=== PATIENT | male | born 1995 | race African-American/Black ===

== ENCOUNTER 2016-04-29 10:33 | Emergency (ER) | payer OTHER, SELFPAY ==
[2016-04-29] MEDS ORDERED: Fentanyl 100 MCG/2 ML VIAL ONE (10:51)
[2016-04-29 11:07] LABS: #Basophils 0.2 thou/uL (0.0-0.2); #Eosinphils 0.1 thou/uL (0.0-0.7); #Lymphocytes 1.5 thou/uL (1.20-3.40); #Monocytes 0.4 thou/uL (0.11-0.59); #Neutrophils 3.1 thou/uL (1.40-6.50); %Basophils 2.9 % (0.0-1.0); %Eosinophils 2.3 % (0.0-10.0); %Lymphocytes 28.6 % (21.0-51.0); %Monocytes 7.1 % (0.0-10.0); Hematocrit 48.2 % (42.0-52.0); Mean Platelet Volume 6.7 fL (7.4-10.4); Red Blood Cell (RBC) Count 5.27 mill/uL (4.70-6.10); White Blood Cell (WBC) Count 5.3 thou/uL (4.8-10.8)
[2016-04-29 11:21] LABS: ALT (SGPT) 16 U/L (0-55); AST (SGOT) 12 U/L (5-34); Alkaline Phosphatase 65 U/L (40-150); Anion Gap 13 mmol/L (10-20); BUN (Urea Nitrogen) 7 mg/dL (8.9-20.6); Bilirubin, Total 0.9 mg/dL (0.2-1.2); Calc. Creatinine Clearance 0 mL/min (70-130); Calcium 9.3 mg/dL (7.8-10.44); Carbon Dioxide 26 mmol/L (22-29); Chloride 106 mmol/L (98-107); Estimated GFR-MDRD Greater than 90; Globulin 3.4 g/dL (2.4-3.5); Protein, Total 7.8 g/dL (6.0-8.3)
[2016-04-29] MEDS ORDERED: Lidocaine 1% 20 ML MDV ONE (11:28)
[2016-04-29] MEDS ORDERED: Bacitracin Zinc 1 Packet ONE (11:50)
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
--- NOTE | 2016-04-29 12:16 | PICIS ---
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 Range (136-145), Potassium 3.7 mmol/L, Range (3.5-5.1), Chloride 106 mmol/L, Range (98-107), Carbon Dioxide 26 mmol/L, Range (22-29), Anion Gap 13 mmol/L, Range (10-20), *BUN (Urea Nitrogen) 7 - L mg/dL, Range (8.9-20.6), Creatinine 1.04 mg/dL, Range (0.7-1.3), Estimated GFR-MDRD Greater than 90 , Reference Range for Estimated GFR: Greater than 90, mL/min/1.73 m2 NOTE: The MDRD equation has not been validated for use, with the elderly (over 70 years of age), women, patients with, serious comorbid condition or persons with extremes of body size, muscle, mass, or nutritional status. , *Glucose 109 - H mg/dL, Range (70-105), Calcium 9.3 mg/dL, Range (7.8-10.44), Bilirubin, Total 0.9 mg/dL, Range (0.2-1.2), Protein, Total 7.8 g/dL, Range (6.0-8.3), NOTE: Plasma values are generally 0.3 to 0.5 g/dL higher than serum values, due to the presence of fibrinogen. , Albumin 4.4 g/dL, Range (3.5-5.0), Globulin 3.4 g/dL, Range (2.4-3.5), Alb/Glob Ratio 1.3 g/dL, Range (1.2-2.2), Alkaline Phosphatase 65 U/L, Range (40-150), AST (SGOT) 12 U/L, Range (5-34), ALT (SGPT) 16 U/L, Range (0-55). CBC with Differential Collection DT: Sat Apr 29, 2016 10:57, White Blood Cell (WBC) Count 5.3 thou/uL, Range (4.8-10.8), Red Blood Cell (RBC) Count 5.27 mill/uL, Range (4.70-6.10), Hemoglobin 16.1 g/dL, Range (14.0-18.0), Hematocrit 48.2 %, Range (42.0-52.0), Mean Corpuscular Volume 91.6 fl, Range (80.0-94.0), &a-1R&a+25V*p+0X*w6094V*c202B*c15G*c2P*p-0X&a-25V&a+1R Name: Melecio Little : 1995 M20 MedRec: [id number] AcctNum: [id number] Prepared: Sat Apr 29, 2016 12:44 by Interface Page 10 of 11 pMD [facility] EMERGENCY RECORD Mean Corpuscular Hemoglobin 30.7 pg, Range (27.0-31.0), Mean Corpuscular HGB CONC 33.5 g/dL, Range (32.0-36.0), RBC Distribution Width 12.7 %, Range (11.5-14.5), Platelet Count 304 thou/uL, Range (130-400), *Mean Platelet Volume 6.7 - L fL, Range (7.4-10.4), %Neutrophils 59.0 %, Range (42.0-75.0), %Lymphocytes 28.6 %, Range (21.0-51.0), %Monocytes 7.1 %, Range (0.0-10.0), %Eosinophils 2.3 %, Range (0.0-10.0), *%Basophils 2.9 - H %, Range (0.0-1.0), #Neutrophils 3.1 thou/uL, Range (1.40-6.50), #Lymphocytes 1.5 thou/uL, Range (1.20-3.40), #Monocytes 0.4 thou/uL, Range (0.11-0.59), #Eosinphils 0.1 thou/uL, Range (0.0-0.7), #Basophils 0.2 thou/uL, Range (0.0-0.2). Smith: CHRISTINA=SIDDHARTHA Wilcox, Isis FRANCIS=MD Patel, Leonides CHAPARRO=JENNIFER Pittman Kim &a-1R&a+25V*p+0X*a0429H*c202B*c15G*c2P*p-0X&a-25V&a+1R Name: Melecio Little : 1995 M20 MedRec: [id number] AcctNum: [id number] Prepared: Sat Apr 29, 2016 12:44 by Interface Page 11 of 11 pMD MTDD
--- NOTE | 2016-04-29 12:51 | RAD ---
RIGHT KNEE 4 VIEWS: Date: 04/29/16 PROVIDED CLINICAL HISTORY: Right knee pain status post injury. FINDINGS: There is soft tissue deficiency overlying the patella compatible with laceration. There is no eviden ce for fracture or other acute osseous abnormality. Alignment appears anatomic. Joint spaces appear preserved. No evidence for knee joint capsular distention. Several tiny foci of increased density pr oject in the soft tissues anterior to the patella on the lateral view which could reflect small fore ign bodies. IMPRESSION: 1. No evidence for fracture. 2. Soft tissue laceration with possible associated foreign body. POS: HUMAIRA
== END 2016-04-29 12:02 | disposition home or self-care (01) ==
LOC: NAV ERS 10:33
DX: S81.011A Laceration without foreign body, right knee, initial encounter (principal); J45.909 Unspecified asthma, uncomplicated; F17.210 Nicotine dependence, cigarettes, uncomplicated; W01.0XXA Fall on same level from slipping, tripping and stumbling without subsequent striking against object, initial encounter
CPT/HCPCS: 12002; 80053; 80307; 85025; 96374; J2001; J3010

== ENCOUNTER 2016-05-07 20:36 | Emergency (ER) | payer OTHER ==
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
== END 2016-05-07 21:05 | disposition home or self-care (01) ==
LOC: NAV ERS 20:36
DX: S81.011D Laceration without foreign body, right knee, subsequent encounter (principal); J45.909 Unspecified asthma, uncomplicated; Z79.899 Other long term (current) drug therapy; X58.XXXD Exposure to other specified factors, subsequent encounter
CPT/HCPCS: 99282

== ENCOUNTER 2016-05-09 07:26 | Emergency (ER) | payer OTHER ==
--- NOTE | 2016-05-09 07:54 | ERRECORD ---
[facility] EMERGENCY RECORD HPI WOUND CHECK (07:44 JLOY) CHIEF COMPLAINT: Patient presents for evaluation of knee wound, laceration, closed with sutures, Wound is 10 days old, Patient presents for evaluation of Pt reports improvement of pain and small drainage. wound scabbed over. No fevers. Noted to have minimal purulent drainaged at the inferior aspect of the wound but mostly healthy granulation tissue. HISTORIAN: History provided by patient. LOCATION: Symptoms are localized. TIME COURSE: Symptoms are improving. ASSOCIATED WITH: No associated chills, Associated with drainage, intermittent, No associated fever, No associated proximal streaking, No associated redness. EXACERBATED BY: Patient's condition exacerbated by nothing. RELIEVED BY: Patient's condition relieved by time. ROS (07:45 JLOY) CONSTITUTIONAL: Historian denies chills, denies fever. GI: Historian denies nausea, denies vomiting. SKIN: Historian denies cellulitis, denies induration. PAST MEDICAL HISTORY MEDICAL HISTORY: Flu vaccine not up to date, Tetanus immunization up to date, Pneumococcal vaccine not up to date, Past medical history includes pulmonary disease, asthma. (07:34 JPAR) MALE SURGICAL HISTORY: Patient has no surgical history. (07:34 JPAR) PSYCHIATRIC HISTORY: No previous psychiatric history. (07:34 JPAR) SOCIAL HISTORY: Patient denies alcohol use, Patient denies drug use, Patient currently uses tobacco, smokes cigarettes, Patient smokes 1.5 packs per day. (07:34 JPAR) FAMILY HISTORY: Maternal history of hypertension, MOTHER HAS HX OF htn. (07:34 JPAR) NOTES: Nursing records reviewed, Agree with nursing records. (07:46 JLOY) KNOWN ALLERGIES No Known Drug Allergies CURRENT MEDICATIONS (SunMay 09, 2016 07:33 JPAR) None VITAL SIGNS (07:31 JPAR) VITAL SIGNS: BP: 120/61, Pulse: 89, Resp: 16, Temp: 98.8 (Oral), O2 sat: 100, Time: 05/09/2016 07:31. PHYSICAL EXAM (07:45 JLOY) CONSTITUTIONAL: Vital signs reviewed, Patient appears non toxic, Patient alert and oriented to person, place and time. RESPIRATORY CHEST: Respiratory exam included findings of no &a-1R&a+25V*p+0X*j1297Y*c202B*c15G*c2P*p-0X&a-25V&a+1R Name: Melecio Little : 1995 M20 MedRec: [id number] AcctNum: [id number] Prepared: SunMay 09, 2016 07:56 by Interface Page 1 of 2 pMD [facility] EMERGENCY RECORD respiratory distress, Chest exam included findings of chest movement symmetrical. LOWER EXTREMITY: Lower extremity exam included findings of inspection abnormal, laceration(s) present, Healing well. See HPI for details. NEURO: Joan coma scale 15, Neuro exam findings include patient oriented to person, place and time, Speech normal. PSYCHIATRIC: Normal affect. PROBLEM LIST No recorded problems DIAGNOSIS (07:43 TITO) FINAL: PRIMARY: ENCOUNTER FOR REMOVAL OF SUTURES. PRESCRIPTION (07:43 TITO) Bactrim DS: TABLET : 800 mg-160 mg : ORAL : Quantity: 1 Unit: tab(s) Route: ORAL Schedule: 2 times a day Dispense: 14 May substitute. Refills: No Refills . NOTES: No Refills. DISPOSITION PATIENT: Disposition Type: Discharge, Disposition: *Discharge Home. (07:43 TITO) Patient left the department. (07:51 CHRISTINA) Smith: CHRISTINA=SIDDHARTHA Wilcox, Isis FRANCIS=MD Patel, Leonides LAZARO=SIDDHARTHA Johnson, Tutu &a-1R&a+25V*p+0X*b2936H*c202B*c15G*c2P*p-0X&a-25V&a+1R Name: Melecio Little : 1995 M20 MedRec: [id number] AcctNum: [id number] Prepared: SunMay 09, 2016 07:56 by Interface Page 2 of 2 pMD MTDD
--- NOTE | 2016-05-09 08:02 | PICIS ---
[facility] EMERGENCY RECORD TRIAGE (SunMay 09, 2016 07:33 JPAR) TRIAGE NOTES: Suture removal, 9 days. (SunMay 09, 2016 07:33 JPAR) PATIENT: NAME: Melecio Little, AGE: 20, GENDER: male, : Sun1995, TIME OF GREET: SunMay 09, 2016 07:27, PREFERRED LANGUAGE: Lithuanian, ETHNICITY: Not or , ECODE BILLING MAP: [facility], Zip Code: [address], KG WEIGHT: 81.65, PHONE: , , , PERSON ID: [id number], PCP: Jessica Gallardo /Petar. (SunMay 09, 2016 07:33 JPAR) SSN: [id number]. (07:34) COMPLAINT: REMOVE STITCHES. (SunMay 09, 2016 07:33 JPAR) ADMISSION: URGENCY: 4 Non Urgent, ADMISSION SOURCE: Home, TRANSPORT: Ambulance- [facility], BED: TRIAGE. (SunMay 09, 2016 07:33 JPAR) ASSESSMENT: Assessment: suture removal R knee, Symptoms began 9 days, Symptoms began greater than 1 week ago. (07:34 JPAR) SIRS SCORING: Heart Rate 55-109 (0), Temp range 96.8-101.1 (0), respiratory rate 12-24 (0), Mental Status altered: no (0), Infection or Suspected Infection: No. (07:34 JPAR) TRIAGE SCREENING: Patient denies suicidal ideation, Patient denies presence of domestic violence. (07:34 JPAR) PROVIDERS: TRIAGE NURSE: Tutu Johnson RN. (SunMay 09, 2016 07:33 JPAR) VITAL SIGNS: BP 120/61, Pulse 89, Resp 16, Temp 98.8, (Oral), O2 Sat 100, Time 05/09/2016 07:31. (07:31 JPAR) PREVIOUS VISIT ALLERGIES: No Known Drug Allergies. (SunMay 09, 2016 07:33 JPAR) No Known Drug Allergies. (07:34 JPAR) KNOWN ALLERGIES No Known Drug Allergies CURRENT MEDICATIONS (SunMay 09, 2016 07:33 JPAR) None VITAL SIGNS (07:31 JPAR) VITAL SIGNS: BP: 120/61, Pulse: 89, Resp: 16, Temp: 98.8 (Oral), O2 sat: 100, Time: 05/09/2016 07:31. NURSING ASSESSMENT: SKIN (07:33 JPAR) CONSTITUTIONAL: Patient arrives ambulatory, Gait steady, History obtained from patient, Patient appears comfortable, Patient cooperative, Patient alert, Oriented to person, place and time, Skin warm, Skin dry, Skin normal in color, Mucous membranes pink, Mucous membranes moist, Patient complains of Suture removal R knee. PAIN: aching pain, on a scale 0-10 patient rates pain as 2. SKIN: Skin assessment findings include skin warm, Skin dry, Skin normal in color, Notes: scabbing R knee, sutures in place. &a-1R&a+25V*p+0X*q0550T*c202B*c15G*c2P*p-0X&a-25V&a+1R Name: Sridhar Littlewilbert Jhaveri : 1995 M20 MedRec: [id number] AcctNum: [id number] Prepared: SunMay 09, 2016 08:01 by Interface Page 1 of 4 pMD [facility] EMERGENCY RECORD SAFETY: Side rails up, Cart/Stretcher in lowest position, Call light within reach, Hospital ID band on. NURSING PROCEDURE: DISCHARGE NOTE (07:47 EPIE) DISCHARGE: Patient discharged to home, ambulating without assistance, driving self, unaccompanied, Summary of Care printed/ provided, Discharge instructions given to patient, Simple or moderate discharge teaching performed, Prescriptions given and instructions on side effects given, Name of prescription(s) given: bactrim, Above person(s) verbalized understanding of discharge instructions and follow-up care, Notes: Pt instructed to take antibiotic as listed and finish the whole prescription. BELONGINGS: Belongings and valuables with patient upon arrival to the Emergency Department include:, Belongings and valuables with patient at time of discharge include:, Belongings remain with patient, Valuables remain with patient. NURSING PROCEDURE: SUTURE/STAPLE REMOVAL (07:45 EPIE) SUTURE/STAPLE REMOVAL: Sutures removed, from right knee, signs of infection, Number of sutures removed 4, by Patel SCOTT. FOLLOW-UP: After procedure, no dressing necessary. HPI WOUND CHECK (07:44 JLOY) CHIEF COMPLAINT: Patient presents for evaluation of knee wound, laceration, closed with sutures, Wound is 10 days old, Patient presents for evaluation of Pt reports improvement of pain and small drainage. wound scabbed over. No fevers. Noted to have minimal purulent drainaged at the inferior aspect of the wound but mostly healthy granulation tissue. HISTORIAN: History provided by patient. LOCATION: Symptoms are localized. TIME COURSE: Symptoms are improving. ASSOCIATED WITH: No associated chills, Associated with drainage, intermittent, No associated fever, No associated proximal streaking, No associated redness. EXACERBATED BY: Patient's condition exacerbated by nothing. RELIEVED BY: Patient's condition relieved by time. ROS (07:45 JLOY) CONSTITUTIONAL: Historian denies chills, denies fever. GI: Historian denies nausea, denies vomiting. SKIN: Historian denies cellulitis, denies induration. PAST MEDICAL HISTORY MEDICAL HISTORY: Flu vaccine not up to date, Tetanus immunization up to date, Pneumococcal vaccine not up to date, Past medical history includes pulmonary disease, asthma. (07:34 JPAR) MALE SURGICAL HISTORY: Patient has no surgical history. (07:34 JPAR) PSYCHIATRIC HISTORY: No previous psychiatric history. &a-1R&a+25V*p+0X*z8776T*c202B*c15G*c2P*p-0X&a-25V&a+1R Name: Melecio Little : 1995 M20 MedRec: [id number] AcctNum: [id number] Prepared: Stevie May 09, 2016 08:01 by Interface Page 2 of 4 pMD [facility] EMERGENCY RECORD (07:34 JPAR) SOCIAL HISTORY: Patient denies alcohol use, Patient denies drug use, Patient currently uses tobacco, smokes cigarettes, Patient smokes 1.5 packs per day. (07:34 JPAR) FAMILY HISTORY: Maternal history of hypertension, MOTHER HAS HX OF htn. (07:34 JPAR) NOTES: Nursing records reviewed, Agree with nursing records. (07:46 JLOY) PHYSICAL EXAM (07:45 JLOY) CONSTITUTIONAL: Vital signs reviewed, Patient appears non toxic, Patient alert and oriented to person, place and time. RESPIRATORY CHEST: Respiratory exam included findings of no respiratory distress, Chest exam included findings of chest movement symmetrical. LOWER EXTREMITY: Lower extremity exam included findings of inspection abnormal, laceration(s) present, Healing well. See HPI for details. NEURO: Clarks coma scale 15, Neuro exam findings include patient oriented to person, place and time, Speech normal. PSYCHIATRIC: Normal affect. EVENTS TRANSFER: Triage to Emergency Triage. (SunMay 09, 2016 07:33 JPAR) Emergency Triage to Emergency Room -02. (07:33 JPAR) Removed from Emergency Emergency Room -02. (07:51 EPIE) SUTURE/STAPLE REMOVAL (07:46 JLOY) SUTURE/STAPLE REMOVAL: Side and/or site verified, Patient identification confirmed, Sterile procedures observed, Verbal consent obtained, Suture or staple removal indicated for scheduled removal, Suture(s) removed from laceration, to knee, Wound age 10 days, Serosanguinous drainage present, Suture(s) removed without difficulty, Number of sutures removed 4, There were no complications, Patient tolerated the procedure well, Mostly serosanguinous drainage but minimal purulence noted from inferior wound edge. Abx prescribed. PROBLEM LIST No recorded problems DIAGNOSIS (07:43 JLOY) FINAL: PRIMARY: ENCOUNTER FOR REMOVAL OF SUTURES. DISPOSITION PATIENT: Disposition Type: Discharge, Disposition: *Discharge Home. (07:43 JLOY) Patient left the department. (07:51 EPIE) &a-1R&a+25V*p+0X*e1371D*c202B*c15G*c2P*p-0X&a-25V&a+1R Name: Sridhar Littlewilbert Jhaveri : 1995 M20 MedRec: [id number] AcctNum: [id number] Prepared: SunMay 09, 2016 08:01 by Interface Page 3 of 4 pMD [facility] EMERGENCY RECORD INSTRUCTION (07:44 JLOY) DISCHARGE: SUTURE REMOVAL, INFECTED. FOLLOWUP: [facility], [facility], [address], [facility] [address], , Follow up with Primary Care Physician in 3-4 days. PRESCRIPTION (07:43 JLOY) Bactrim DS: TABLET : 800 mg-160 mg : ORAL : Quantity: 1 Unit: tab(s) Route: ORAL Schedule: 2 times a day Dispense: 14 May substitute. Refills: No Refills . NOTES: No Refills. IMAGING (07:51 CHRISTINA) *DISCHARGE INSTRUCTIONS RECEIPT: Image captured from scanner. *SUPPLY CHARGE SHEET: Image captured from scanner. ADMIN (07:47 TITO) DIGITAL SIGNATURE: MD Sweeney Joshua. Smith: CHRISTINA=SIDDHARTHA Wilcox, Isis FRANCIS=MD Sweeney Joshua JPAR=SIDDHARTHA Johnson, Tutu &a-1R&a+25V*p+0X*i3470K*c202B*c15G*c2P*p-0X&a-25V&a+1R Name: SidneyMelecio : 1995 M20 MedRec: [id number] AcctNum: [id number] Prepared: Stevie May 09, 2016 08:01 by Interface Page 4 of 4 pMD MTDD
== END 2016-05-09 07:47 | disposition home or self-care (01) ==
LOC: NAV ERS 07:26
DX: S81.011D Laceration without foreign body, right knee, subsequent encounter (principal); J45.909 Unspecified asthma, uncomplicated; F17.210 Nicotine dependence, cigarettes, uncomplicated; X58.XXXD Exposure to other specified factors, subsequent encounter
CPT/HCPCS: 99282

== ENCOUNTER 2016-06-13 16:52 | Emergency (ER) | payer OTHER ==
[2016-06-13 17:09] LABS: Bilirubin Negative (Negative); Blood, Urine Negative (Negative); Glucose, Urine (Dipstick) Negative (Negative); Ketone, Urine Trace mg/dL (Negative); Nitrite Negative (Negative); Protein, Urine (Dipstick) 30 mg/dL (Neg-Trace)
[2016-06-13 17:15] LABS: Bacteria/HPF 1+ HPF (None Seen); RBC/HPF None Seen HPF (0-3); Squamous Epithelial None Seen HPF (0-3)
[2016-06-13] MEDS ORDERED: Amoxicillin/Potassium Clav 875 MG TAB ONE (17:29)
[2016-06-13] MEDS ORDERED: Phenazopyridine HCl 97.5 MG TABLET ONE (17:29)
== END 2016-06-13 17:37 | disposition home or self-care (01) ==
LOC: NAV ERS 16:52
DX: N39.0 Urinary tract infection, site not specified (principal); J45.909 Unspecified asthma, uncomplicated; F17.210 Nicotine dependence, cigarettes, uncomplicated
CPT/HCPCS: 81003; 81015; 87086; 87491; 87591; 99283

== ENCOUNTER → 2016-06-15 | Day surgery (SDC) | payer OTHER ==
[~2016-06-15] MED LIST: cefTRIAXone\\ROCEPHIN 250 MG VIAL ONE
== END ==
LOC: NAV ER/OP 16:35
PROVIDERS: ATTEND Emergency Medicine
DX: A54.9 Gonococcal infection, unspecified (principal); Z79.2 Long term (current) use of antibiotics
CPT/HCPCS: 96372; J0696

== ENCOUNTER 2016-09-16 06:43 | Emergency (ER) | payer OTHER | END 2016-09-16 07:35 | disposition home or self-care (01) | LOC: NAV ERS 06:43 | DX: J30.9 Allergic rhinitis, unspecified (principal); J45.909 Unspecified asthma, uncomplicated; Z87.891 Personal history of nicotine dependence | CPT/HCPCS: 99283 ==

== ENCOUNTER 2016-09-26 10:54 | Emergency (ER) | payer OTHER ==
[2016-09-26] MEDS ORDERED: Sodium Chloride 0.9% 1,000 ML ONE ×2 (11:07)
[2016-09-26] MEDS ORDERED: Ondansetron HCl/PF 4 MG/2 ML Vial ONE (11:08)
[2016-09-26 11:47] LABS: #Basophils 0.2 thou/uL (0.0-0.2); #Eosinphils 0.2 thou/uL (0.0-0.7); #Lymphocytes 2.6 thou/uL (1.20-3.40); #Monocytes 0.4 thou/uL (0.11-0.59); #Neutrophils 2.6 thou/uL (1.40-6.50); %Basophils 2.6 % (0.0-1.0); %Eosinophils 3.5 % (0.0-10.0); %Lymphocytes 43.1 % (21.0-51.0); %Monocytes 6.7 % (0.0-10.0); Hemoglobin 14.9 g/dL (14.0-18.0); Mean Corpuscular Hemoglobin 29.6 pg (27.0-31.0); Mean Corpuscular Volume 89.7 fl (80.0-94.0); Mean Platelet Volume 6.4 fL (7.4-10.4); Platelet Count 273 thou/uL (130-400); RBC Distribution Width 11.6 % (11.5-14.5); Red Blood Cell (RBC) Count 5.05 mill/uL (4.70-6.10); White Blood Cell (WBC) Count 5.9 thou/uL (4.8-10.8)
[2016-09-26 11:58] LABS: ALT (SGPT) 21 U/L (8-55); AST (SGOT) 12 U/L (5-34); Albumin 4.1 g/dL (3.5-5.0); Alkaline Phosphatase 66 U/L (40-150); Anion Gap 14 mmol/L (10-20); BUN (Urea Nitrogen) 8 mg/dL (8.9-20.6); Calc. Creatinine Clearance 0 mL/min (70-130); Calcium 9.1 mg/dL (7.8-10.44); Carbon Dioxide 22 mmol/L (22-29); Chloride 107 mmol/L (98-107); Estimated GFR-MDRD Greater than 90; Glucose 96 mg/dL (70-105); Potassium 3.9 mmol/L (3.5-5.1); Protein, Total 7.1 g/dL (6.0-8.3); Sodium 139 mmol/L (136-145)
[2016-09-26 12:15] LABS: Bilirubin Negative (Negative); Clarity Clear (Clear); Glucose, Urine (Dipstick) Negative (Negative); Leukocyte Negative (Negative); Nitrite Negative (Negative); Protein, Urine (Dipstick) Negative (Neg-Trace); Specific Gravity, Urine 1.025 (1.005-1.030); Urobilinogen 0.2 mg/dL (0.2-1.0)
[2016-09-26 12:16] LABS: Blood, Urine Negative (Negative)
== END 2016-09-26 12:10 | disposition home or self-care (01) ==
LOC: NAV ERS 10:54
DX: R19.7 Diarrhea, unspecified (principal); R11.2 Nausea with vomiting, unspecified; J45.909 Unspecified asthma, uncomplicated; Z87.891 Personal history of nicotine dependence
CPT/HCPCS: 80053; 81003; 85025; 96361; 96374; J2405; J7050

== ENCOUNTER 2017-10-09 06:56 | Emergency (ER) | payer OTHER, SELFPAY ==
[2017-10-09] MEDS ORDERED: Ketorolac Tromethamine 30 MG/ML VIAL ONE (07:22)
[2017-10-09] MEDS ORDERED: Sodium Chloride 0.9% 1,000 ML ONE (07:22)
[2017-10-09 07:58] LABS: Bilirubin Negative (Negative); Blood, Urine Negative (Negative); Clarity Clear (Clear); Glucose, Urine (Dipstick) Negative (Negative); Leukocyte Negative (Negative); Nitrite Negative (Negative); Protein, Urine (Dipstick) Negative (Neg-Trace); Specific Gravity, Urine 1.025 (1.005-1.030); Urobilinogen 0.2 mg/dL (0.2-1.0)
[2017-10-09 07:59] LABS: #Basophils 0.1 thou/uL (0.0-0.2); #Eosinphils 0.2 thou/uL (0.0-0.7); #Lymphocytes 1.4 thou/uL (1.20-3.40); #Monocytes 0.3 thou/uL (0.11-0.59); #Neutrophils 1.8 thou/uL (1.40-6.50); %Basophils 3.1 % (0.0-1.0); %Eosinophils 6.4 % (0.0-10.0); %Lymphocytes 36.3 % (21.0-51.0); %Monocytes 8.2 % (0.0-10.0); Hemoglobin 14.7 g/dL (14.0-18.0); Mean Corpuscular HGB CONC 32.3 g/dL (32.0-36.0); Mean Corpuscular Hemoglobin 28.7 pg (27.0-31.0); Platelet Count 261 thou/uL (130-400); RBC Distribution Width 11.8 % (11.5-14.5); Red Blood Cell (RBC) Count 5.12 mill/uL (4.70-6.10); White Blood Cell (WBC) Count 3.8 thou/uL (4.8-10.8)
[2017-10-09 08:02] LABS: ALT (SGPT) 15 U/L (8-55); AST (SGOT) 15 U/L (5-34); Alkaline Phosphatase 50 U/L (40-150); Anion Gap 14 mmol/L (10-20); BUN (Urea Nitrogen) 14 mg/dL (8.9-20.6); Calc. Creatinine Clearance 0 mL/min (70-130); Calcium 9.5 mg/dL (7.8-10.44); Carbon Dioxide 24 mmol/L (22-29); Chloride 105 mmol/L (98-107); Estimated GFR-MDRD Greater than 90; Globulin 2.7 g/dL (2.4-3.5); Glucose 102 mg/dL (70-105); Potassium 3.8 mmol/L (3.5-5.1); Protein, Total 6.7 g/dL (6.0-8.3); Sodium 139 mmol/L (136-145)
== END 2017-10-09 08:53 | disposition home or self-care (01) ==
LOC: NAV ERS 06:56
DX: T67.5XXA Heat exhaustion, unspecified, initial encounter (principal); J45.909 Unspecified asthma, uncomplicated; F17.210 Nicotine dependence, cigarettes, uncomplicated; Z79.899 Other long term (current) drug therapy
CPT/HCPCS: 80053; 81003; 85025; 96361; 96374; J1885; J7050

== ENCOUNTER 2018-03-15 09:47 | Emergency (ER) | payer SELFPAY ==
[2018-03-15] MEDS ORDERED: Bupivacaine 0.5% 10 ML VIAL ONE (10:12)
== END 2018-03-15 10:25 | disposition home or self-care (01) ==
LOC: NAV ERS 09:47
DX: K04.7 Periapical abscess without sinus (principal); F17.210 Nicotine dependence, cigarettes, uncomplicated; J45.909 Unspecified asthma, uncomplicated
CPT/HCPCS: 64400; J3490

== ENCOUNTER 2018-06-18 09:42 | Emergency (ER) | payer BC, SELFPAY | END 2018-06-18 10:29 | disposition home or self-care (01) | LOC: NAV ERS 09:42 | DX: J11.1 Influenza due to unidentified influenza virus with other respiratory manifestations (principal); F17.210 Nicotine dependence, cigarettes, uncomplicated | CPT/HCPCS: 99281 ==

== ENCOUNTER 2018-08-12 12:48 | Emergency (ER) | payer BC | END 2018-08-12 13:38 | disposition home or self-care (01) | LOC: NAV ERS 12:48 | DX: L05.01 Pilonidal cyst with abscess (principal); J45.909 Unspecified asthma, uncomplicated; F17.210 Nicotine dependence, cigarettes, uncomplicated | CPT/HCPCS: 99282 ==

== ENCOUNTER 2022-12-29 16:11 | Emergency (ER) | payer OTHER, SELFPAY ==
[2022-12-29] MEDS ORDERED: Boostrix 0.5 ML (Tdap) VIAL (>/=7 yrs of age) ONE (16:38)
[2022-12-29] MEDS ORDERED: Lidocaine 1% (PF) 30 ML VIAL ONE (16:53)
[2022-12-29] MEDS ORDERED: Bacitracin 1 PK ONE (17:39)
== END 2022-12-29 17:58 | disposition home or self-care (01) ==
LOC: NAV ERS 16:11
DX: S67.192A Crushing injury of right middle finger, initial encounter (principal); S61.212A Laceration without foreign body of right middle finger without damage to nail, initial encounter; W23.1XXA Caught, crushed, jammed, or pinched between stationary objects, initial encounter
CPT/HCPCS: 12001; 90471; 90715; J2001